=== PATIENT | female | born 1950 | race Caucasian/White ===

== ENCOUNTER 2017-02-12 11:19 | Emergency (ER) | payer OTHER ==
--- NOTE | ~2017-02-12 | CR116 ---
[facility] A Service of [facility] & [facility] RADIOLOGY TEXT RESULTS PATIENT: AMOS LARA LOCATION: [facility] : 46 UNIT #: [id number] AGE: [address]: Montse Schneider APRN SEX: F ORDER DR: [id number] [facility] [address] [place], [place] [address] [id number] E MR#: [id number] Acc #: [id number] NAME: AMOS LARA : 1950 SEX: F STUDY DATE/TIME: 02/12/2017 11:25 UNIT: [facility] ROOM: STUDY DESCRIPTION: CR Finger 2 View Thumb Lt Attending Physician: Montse Schneider A.P.R.N. Ordering Physician: Ed Jean-Pierre Meyers M.D. Primary Care Physician: Iggy Strickland M.D. MEDICAL IMAGING REPORT This report is preliminary unless electronic signature is present EXAM Left thumb series 02/12/2017 HISTORY Pain redness at proximal joint. Constant pain began 2 days ago. Off and on for 5 months. FINDINGS AP lateral and oblique radiographs of the left thumb are presented. Diminished bony mineralization. No traumatic fracture or malalignment. Mild to moderate degenerative changes of the basal joint of the thumb. Mild degenerative changes noted in the interphalangeal joints of second digit. No soft tissue defect, subcutaneous or radiodense foreign body. Dictated by... Cale Kebede M.D. THIS IS AN ELECTRONICALLY VERIFIED REPORT Cale Kebede M.D. at 02/13/2017 6:26 PM KIERSTEN/taina TD: 02/12/2017 12:55 JOB #: [id number] MEDICAL IMAGING REPORT Page 1 of 1 COPY
== END 2017-02-12 13:13 | disposition home or self-care (01) ==
LOC: CFTX 11:19
DX: L03.012 Cellulitis of left finger (principal); Z88.8 Allergy status to other drugs, medicaments and biological substances
CPT/HCPCS: 73140; 99283

== ENCOUNTER → 2017-02-12 | Outpatient (CLI) | payer OTHER ==
[~2017-02-12] MED LIST: IBUPROFEN600 MG PO; LORTAB 5/500 TA1 TA1 PO; TYLENOL #3 PO; ULTRAM PO
--- NOTE | ~2017-02-12 | CT4 ---
[facility] A Service of [facility] RADIOLOGY TEXT RESULTS PATIENT: AMOS LARA [facility] UNIT #: [id number] AGE: [address]: Iggy Strickland MD SEX: F ORDER DR: [id number] [facility] [address] [place], [place] [address] [id number] O MR#: [id number] Acc #: [id number] NAME: AMOS LARA. : 1950 SEX: F STUDY DATE/TIME: 02/12/2017 10:40 UNIT: [facility] ROOM: STUDY DESCRIPTION: CT Abd and Pelv Wo Cont Attending Physician: Iggy Strickland M.D. Referring Physician: Iggy Strickland M.D. Ordering Physician: Iggy Strickland M.D. Primary Care Physician: Iggy Strickland M.D. MEDICAL IMAGING REPORT This report is preliminary unless electronic signature is present EXAM CT abdomen and pelvis without contrast INDICATIONS Microhematuria, and urinary tract infection for the past [address] of the abdomen and pelvis. This CT exam was performed with one or more of the following radiation dose reduction techniques: automatic control, adjustment of mA and/or kV according to patient size, and iterative reconstruction. COMPARISON None. FINDINGS ABDOMEN WITHOUT CONTRAST: 3 mm noncalcified nodule left lower lobe. There are a few small cysts scattered in the liver. The spleen adrenal glands pancreas gallbladder unremarkable. The bowel loops are nondilated. Moderate colonic stool. Appendix is normal. No radiodense urinary system calculus or hydronephrosis. No perinephric stranding. PELVIS WITHOUT CONTRAST: No radiodense bladder calculus or appreciable bladder wall thickening. Previous hysterectomy. 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 No aggressive appearing bone lesion. IMPRESSION 1. No acute findings. No radiodense urinary system calculus, hydronephrosis, perinephric stranding or appreciable bladder wall thickening. [facility] A Service of [facility] RADIOLOGY TEXT RESULTS PATIENT: AMOS LARA LOCATION: [facility] : 48 UNIT #: [id number] AGE: [address]: Iggy Strickland MD SEX: F ORDER DR: 2. Moderate colonic stool burden. Dictated by... Gordon Epstein M.D. THIS IS AN ELECTRONICALLY VERIFIED REPORT Gordon Epstein M.D. at 02/12/2017 3:56 PM EED/rnr TD: 02/12/2017 14:32 JOB #: [id number] MEDICAL IMAGING REPORT Page 1 of 1 COPY
== END | disposition home or self-care (01) ==
LOC: CCAT 09:46
DX: R31.29 Other microscopic hematuria (principal)
CPT/HCPCS: 74176

== ENCOUNTER → 2017-04-25 | Outpatient (CLI) | payer OTHER ==
--- NOTE | ~2017-04-25 | MY29 ---
[facility] A Service of [facility] RADIOLOGY TEXT RESULTS PATIENT: AMOS LARA LOCATION: [facility] #: [id number] : 46 UNIT #: [id number] AGE: [address]: Iggy Strickland MD SEX: F ORDER DR: [id number] [facility] [address] [place], [place] [address] [id number] O MR#: [id number] Acc #: [id number] NAME: AMOS LARA : 1950 SEX: F STUDY DATE/TIME: 04/25/2017 10:32 UNIT: [facility] ROOM: STUDY DESCRIPTION: MY LURDES SCREENING W/ CAD BILAT Attending Physician: Iggy Strickland M.D. Referring Physician: Iggy Strickland M.D. Ordering Physician: Iggy Strickland M.D. Primary Care Physician: Iggy Strickland M.D. MEDICAL IMAGING REPORT This report is preliminary unless electronic signature is present EXAM Bilateral digital screening mammogram with CAD, 04/25/2017. INDICATION 66-year-old female for routine screening. No reported problems. No personal or family history of breast cancer. No surgeries. TECHNIQUE CC and MLO views of the breasts were obtained and reviewed with an FDA-approved CAD device. COMPARISONS 04/20/2016, 04/14/2015, 04/05/2014 FINDINGS Breast parenchyma is composed of scattered fibroglandular densities and the pattern is unchanged. There is no new dominant nodule, mass, or suspicious cluster of microcalcifications. Prominent fibroglandular tissue in the upper outer aspects of the breasts bilaterally is stable. IMPRESSION Benign screening mammogram. One-year followup recommended. Patients over the age of 40 are entered into a reminder system with target due date for the next mammogram. A result letter will also be sent to the patient. BIRADS: 2 Benign finding. Dictated by... Arik Carmona M.D. [facility] A Service of [facility] RADIOLOGY TEXT RESULTS PATIENT: AMOS LARA [id number] : 46 UNIT #: [id number] AGE: [address]: Iggy Strickland MD SEX: F ORDER DR: THIS IS AN ELECTRONICALLY VERIFIED REPORT Arik Carmona M.D. at 04/25/2017 4:01 PM DONOVAN/mannie TD: 04/25/2017 12:28 JOB #: [id number] MEDICAL IMAGING REPORT Page 1 of 1 COPY
== END | disposition home or self-care (01) ==
LOC: CWCC 10:15
DX: Z12.31 Encounter for screening mammogram for malignant neoplasm of breast (principal)
CPT/HCPCS: G0202